=== PATIENT | female | born 2005 | race African-American/Black ===

== ENCOUNTER 2023-03-24 15:03 | Emergency (ER) | payer MEDICAID, OTHER ==
[~2023-03-24] VITALS: Ht 167.6 cm; Wt 59.0 kg
[~2023-03-24 15:03] MED LIST: FERR325T23 PO; IBUP-2030 PO; PREN1COM12 PO
[2023-03-24 15:13] VITALS: BP 101/60; O2SAT 100
[2023-03-24] MEDS ORDERED: BACITRACIN ZINC OINT UDPKT TOP NR (16:00)
[2023-03-24] MEDS ORDERED: BACITRACIN ZINC OINT UDPKT TOP ONE (16:00)
[2023-03-24] MEDS ORDERED: LIDOCAINE HCL/PF 1% 10 MG/ML 5ML VIAL INFIL ONE (16:00)
[2023-03-24] MEDS ORDERED: LIDOCAINE HCL/PF 1% 10 MG/ML 5ML VIAL INFIL NR (16:00)
[2023-03-24] MEDS ORDERED: CLIN-116 MT (17:29)
[2023-03-24] MEDS ORDERED: BO1 TP (17:29)
[2023-03-24 18:05] VITALS: PULSE 87; RESP 16; TEMP 98.4
== END 2023-03-24 18:07 | disposition home or self-care (01) ==
LOC: ER 15:03
DX: O26.892 Other specified pregnancy related conditions, second trimester (principal); S80.862A Insect bite (nonvenomous), left lower leg, initial encounter; Z3A.16 16 weeks gestation of pregnancy; W57.XXXA Bitten or stung by nonvenomous insect and other nonvenomous arthropods, initial encounter; Y93.89 Activity, other specified; Y92.89 Other specified places as the place of occurrence of the external cause; Y99.8 Other external cause status
CPT/HCPCS: 81025; 99283; J3490; Z7610 ×5

== ENCOUNTER 2023-11-01 20:13 | Emergency (ER) | payer OTHER, MEDICAID ==
[~2023-11-01] VITALS: Ht 167.6 cm; Wt 71.7 kg
[~2023-11-01 20:13] MED LIST changes: +BO1 TP; +CLIN-116 MT
[2023-11-01 20:42] VITALS: BP 117/70; PULSE 78; RESP 16; TEMP 98.5; O2SAT 99
[2023-11-01] MEDS ORDERED: FLUT15.844 BOTHNSTRLS (23:30)
== END 2023-11-02 00:01 | disposition home or self-care (01) ==
LOC: ER 20:13
DX: J34.89 Other specified disorders of nose and nasal sinuses (principal); J06.9 Acute upper respiratory infection, unspecified; R09.81 Nasal congestion
CPT/HCPCS: 99283

== ENCOUNTER 2024-05-23 02:25 | Emergency (ER) | payer MEDICAID ==
[~2024-05-23] VITALS: Ht 167.6 cm; Wt 70.9 kg
[~2024-05-23 02:25] MED LIST changes: +FLUT15.844 BOTHNSTRLS
[2024-05-23 02:30] VITALS: TEMP 97.7; O2SAT 18
[2024-05-23 06:18] VITALS: O2SAT 99
[2024-05-23 06:48] LABS: BASOPHILS % 0.5 % (0.0-2.0); EOSINOPHILS % 1.9 % (0.0-5.0); HEMATOCRIT. 32.8 % (36.0-48.0); HEMOGLOBIN. 10.4 g/dL (12.0-16.0); MEAN CORPUSCULAR HEMOGLOBIN 25.6 pg (28.0-32.0); MEAN CORPUSCULAR HGB CONC 31.6 g/dL (31.0-37.0); MEAN CORPUSCULAR VOLUME 80.9 fL (81.0-99.0); MEAN PLATELET VOLUME 8.6 fl (7.4-10.4); MONOCYTES % 9.8 % (2.0-8.0); NEUTROPHILS % 61.8 % (40.0-76.0); PLATELET 250 x1000/uL (130-400); RED BLOOD CELL COUNT 4.06 mill/uL (4.2-5.4); RED CELL DISTRIBUTION WIDTH 15.8 % (11.6-14.6); WHITE BLOOD COUNT 5.9 x1000/uL (4.5-11.0)
[2024-05-23 06:57] VITALS: BP 125/65; PULSE 86; RESP 20
[2024-05-23] MEDS: IBUPROFEN 600MG TABLET PO ONE (06:57)
[2024-05-23] MEDS: ONDANSETRON 4MG ODT PO ONE (06:57)
[2024-05-23 07:00] LABS: CHLORIDE 108 mEq/L (98-107); POTASSIUM 3.5 mEq/L (3.5-5.1); SODIUM 141 mEq/L (136-145)
[2024-05-23 07:01] LABS: CALCIUM 9.6 mg/dL (8.7-10.4); CARBON DIOXIDE 27 mEq/L (21-32)
[2024-05-23 07:06] LABS: CREATININE 0.8 mg/dL (0.6-1.0); GLUCOSE 93 mg/dL (70-105); UREA NITROGEN BLOOD 9 mg/dL (9-23)
[2024-05-23 07:08] LABS: ALANINE AMINOTRANSFERASE 10 IU/L (10-49); ALBUMIN 4.4 g/dL (3.2-4.8); ASPARTATE AMINOTRANSFERASE 15 IU/L (<34)
[2024-05-23 07:09] LABS: BILIRUBIN TOTAL 0.3 mg/dL (0.1-1.0); PROTEIN TOTAL 7.3 g/dL (6.0-8.3)
[2024-05-23 07:13] LABS: HCG SCREEN NEGATIVE
[2024-05-23] MEDS ORDERED: ONDA-239 PO (07:28)
== END 2024-05-23 07:51 | disposition home or self-care (01) ==
LOC: ER 02:25
DX: B34.9 Viral infection, unspecified (principal)
CPT/HCPCS: 99283; 80053; 84703; 83690; 85025; 36415; Q0162